=== PATIENT | female | born 1990 | race Caucasian/White ===

== ENCOUNTER 2017-02-14 15:07 | Emergency (ER) | payer BC ==
[~2017-02-14] VITALS: Ht 149.9 cm; Wt 54.0 kg
[~2017-02-14 15:07] MED LIST: ALPR0.5T PO; FLUO10CA13 PO; OMEP20CA9 PO; [UNRECOGNIZED DRUG - OTHER] PO
[2017-02-14 15:32] VITALS: BP 126/80
[2017-02-14] MEDS ORDERED: AZIT250T6 PO (16:08)
--- NOTE | 2017-02-14 16:39 | ED.ADGEN ---
Past History Past Medical History: GERD Past Surgical History: No Surgical History Alcohol Use: None Drug Use: None Adult General HPI HPI Patient is a 26-year-old female presents emergency Department with a greater than one week history of sinus congestion. She reports over last 24-48 hours she has noticed a marked increase in drainage as well as a consistency and color that drainage. She also reports intermittent fevers and now she has sinus pressure bilaterally above her jaw. She has been using Flonase and sinus rinses intermittently. Review of Systems Review of Systems Constitutional: Denies fever or chills [] Eyes: Denies change in visual acuity, redness, or eye pain [] HENT: Denies nasal congestion or sore throat [] Respiratory: Denies cough or shortness of breath [] Cardiovascular: No additional information not addressed in HPI [] GI: Denies abdominal pain, nausea, vomiting, bloody stools or diarrhea [] : Denies dysuria or hematuria [] Musculoskeletal: Denies back pain or joint pain [] Integument: Denies rash or skin lesions [] Neurologic: Denies headache, focal weakness or sensory changes [] Endocrine: Denies polyuria or polydipsia [] Allergies Allergies Allergies Coded Allergies Type Severity Reaction Last Updated Verified No Known Drug Allergies 07/09/14 No Physical Exam Physical Exam Constitutional: Well developed, well nourished, no acute distress, non-toxic appearance. [] HENT: Normocephalic, atraumatic, bilateral external ears normal, oropharynx moist, no oral exudates, nose normal. [] Eyes: PERRLA, EOMI, conjunctiva normal, no discharge. [] Neck: Normal range of motion, no tenderness, supple, no stridor. [] Cardiovascular:Heart rate regular rhythm, no murmur [] Lungs & Thorax: Bilateral breath sounds clear to auscultation [] Abdomen: Bowel sounds normal, soft, no tenderness, no masses, no pulsatile masses. [] Skin: Warm, dry, no erythema, no rash. [] Back: No tenderness, no CVA tenderness. [] Extremities: No tenderness, no cyanosis, no clubbing, ROM intact, no edema. [] Neurologic: Alert and oriented X 3, normal motor function, normal sensory function, no focal deficits noted. [] Psychologic: Affect normal, judgement normal, mood normal. [] Current Patient Data Vital Signs Vital Signs Date Time Temp Pulse Resp B/P Pulse Ox O2 Delivery O2 Flow Rate FiO2 02/14/17 15:32 97.9 83 16 99 Room Air EKG EKG [] Radiology/Procedures Radiology/Procedures [] Course & Med Decision Making Course & Med Decision Making Pertinent Labs and Imaging studies reviewed. (See chart for details) I instructed the patient to use her supportive care measures and Flonase more frequently. Given the length of time I have also gone ahead and added a course of antibiotics for her. She is to follow-up with her doctor as needed next week and return emergency department sooner she develops new or worsening symptoms. [ ] Final Impression Final Impression Sinusitis [] Problems: Dragon Disclaimer Dragon Disclaimer This electronic medical record was generated, in whole or in part, using a voice recognition dictation system. DELTA ANDERSON MD Feb 14, 2017 16:39
== END 2017-02-14 16:27 | disposition home or self-care (01) ==
LOC: ER 15:07
DX: J32.9 Chronic sinusitis, unspecified (principal); K21.9 Gastro-esophageal reflux disease without esophagitis
CPT/HCPCS: 99283

== ENCOUNTER → 2017-04-09 | Outpatient (CLI) | payer BC ==
[~2017-04-09] MED LIST changes: +AZIT250T6 PO
--- NOTE | 2017-04-09 09:20 | RAD ---
Indication:Elevated bilirubin. Low back pain. Grayscale images of the abdomen were obtained. Comparison none. Liver:No focal mass lesion is seen in the visualized liver Gallbladder:Normal. The common bile duct diameter of approximately 2 mm is normal. No intrahepatic bile duct dilatation is suggested on this study. Spleen:Normal Pancreas:Normal Kidneys:There is a right renal cyst measuring approximately 1 cm in greatest dimension. No additional renal finding is seen Abdominal aorta and IVC:Normal Ancillary findings:None Impression:No acute or significant finding. Small right renal cyst.
== END | disposition home or self-care (01) ==
LOC: US 08:15
PROVIDERS: ATTEND Family Medicine
DX: E80.6 Other disorders of bilirubin metabolism (principal); N28.1 Cyst of kidney, acquired; M54.5 Low back pain; R17 Unspecified jaundice
CPT/HCPCS: 76700

== ENCOUNTER 2017-06-02 11:30 | Emergency (ER) | payer BC ==
--- NOTE | 2017-06-02 13:07 | RAD ---
Right wrist radiograph 3 views 06/02/2017 Clinical indication: Right wrist pain. Comparison: 03/06/2006 Findings: No acute fracture or dislocation. Normal bony alignment. Soft tissues are grossly unremarkable. Impression: No acute osseous abnormality.
--- NOTE | 2017-06-02 13:13 | RAD ---
Right index finger, 3 views, 06/02/2017: History: Injury No fracture or dislocation is identified. The soft tissues are unremarkable. IMPRESSION: No significant abnormality is detected.
--- NOTE | 2017-06-02 13:32 | PHYS DOC ---
General Chief Complaint: WRIST PAIN Stated Complaint: WRIST PAIN Time Seen by MD: 11:34 Source: patient Exam Limitations: no limitations Problems: History of Present Illness Initial Comments Patient is a 26-year-old female who comes to the ED complaining of right wrist pain. Patient states that earlier today she was helping someone move and while moving a sofa her right index finger and right wrist were hyperextended. She had pain at that time and has worsening of her symptoms with active flexion of her fingers and wrist. No numbness tingling weakness or radiating symptoms no pre- arrival treatment she denies any prior injury to that extremity. Onset: this morning Severity: mild Pain/Injury Location: right wrist, right 2nd finger Method of Injury: other Modifying Factors: worse with jarring, worse with movement, improves with rest Allergies: Coded Allergies: No Known Drug Allergies (Unverified , 07/09/14) Past Medical History Medical History: no pertinent history Surgical History: no surgical history Social History Smoker: non-smoker Alcohol: none Drugs: none Review of Systems Constitutional: denies chills, denies fever Respiratory: denies cough, denies shortness of breath Cardiovascular: denies chest pain, denies palpitations Gastrointestinal: denies nausea, denies vomiting Musculoskeletal: see HPI Psychiatric/Neurological: see HPI Physical Exam General Appearance: WD/WN, no apparent distress HEENT: normal ENT inspection Neck: non-tender, supple Cardiovascular/Respiratory: normal peripheral pulses, no respiratory distress Wrist: limited ROM (diffuse right wrist tenderness no focal bony tenderness or palpable deformity. Ligaments and tendons appear to be intact.) Hand: limited ROM (right second finger diffusely tender range of motion limited due to patient discomfort. Ligaments and tendons are intact the extremity is neurovascularly intact.) Neurologic/Tendon: normal sensation, normal motor functions, normal tendon functions, responds to pain, no evidence tendon injury Psychiatric: alert, oriented x 3 Skin: normal color, warm/dry Orders, Labs, Meds Right wrist, right fingers: No acute osseous abnormality. Interpreted by Dr. Constantino. Right upper extremity neurovascularly intact after splint placement. Departure Time of Disposition: 13:31 Disposition: 01 HOME, SELF-CARE Diagnosis: right wrist sprain Condition: GOOD Patient Instructions: RICE - Routine Care for Injuries, [id number] Additional Instructions: RICE, see handout. Wear the wrist splint as needed for symptom control. [id number] Tylenol and ibuprofen as needed. Follow-up with your doctor on Thursday for a recheck. Return to the ED with new or changing symptoms. ERENDIRA CONSTANTINO DO Jun 02, 2017 13:32
[2017-06-02 13:40] VITALS: BP 111/73
== END 2017-06-02 13:40 | disposition home or self-care (01) ==
LOC: ER 11:30
DX: S63.501A Unspecified sprain of right wrist, initial encounter (principal); X58.XXXA Exposure to other specified factors, initial encounter; Y93.89 Activity, other specified; Y99.8 Other external cause status; Y92.89 Other specified places as the place of occurrence of the external cause
CPT/HCPCS: 29125; 73110; 73140; 99284-25

== ENCOUNTER 2017-10-17 20:50 | Emergency (ER) | payer BC ==
[~2017-10-17] VITALS: Ht 149.9 cm; Wt 54.0 kg
[2017-10-17 20:59] VITALS: BP 135/79
== END 2017-10-17 21:15 | disposition home or self-care (01) ==
LOC: ER 20:50
DX: R10.9 Unspecified abdominal pain (principal); Z53.21 Procedure and treatment not carried out due to patient leaving prior to being seen by health care provider

== ENCOUNTER → 2017-10-30 | Outpatient (CLI) | payer BC ==
[2017-10-17 20:59] VITALS: BP 135/79
--- NOTE | 2017-10-30 16:43 | RAD ---
CT of the abdomen and pelvis without contrast, 10/30/2017: History: Cystitis with hematuria Multidetector CT imaging was performed without oral or IV contrast as requested. This limits evaluation of the abdominal structures. The unopacified liver is unremarkable. No gallbladder abnormality is seen. The pancreas is unremarkable. The spleen is of normal size. The unopacified kidneys show no abnormality. The abdominal aorta is of normal caliber. No abdominal or pelvic adenopathy is identified. The uterus and ovaries are within normal limits in size. The partially filled urinary bladder is unremarkable. The bowel loops are not dilated. The appendix is not clearly visualized. No dilated appendix or pericecal inflammatory process is seen. There appears to be a small diverticulum arising from the lateral aspect of the hepatic flexure of the colon. No free air or free fluid is evident in the abdomen or pelvis. IMPRESSION: No acute abdominal or pelvic abnormality is detected. PQRS Compliance Statement: One or more of the following individualized dose reduction techniques were utilized for this examination: 1. Automated exposure control 2. Adjustment of the mA and/or kV according to patient size 3. Use of iterative reconstruction technique
== END | disposition home or self-care (01) ==
LOC: CT 16:01
PROVIDERS: ATTEND Family Medicine
DX: N30.01 Acute cystitis with hematuria (principal); F17.210 Nicotine dependence, cigarettes, uncomplicated
CPT/HCPCS: 74176

== ENCOUNTER 2017-12-04 16:30 | Emergency (ER) | payer BC ==
[~2017-12-04] VITALS: Ht 149.9 cm; Wt 58.1 kg
[2017-12-04] MEDS ORDERED: diazePAM 5 MG TABLET PO ONE (17:15)
[2017-12-04] MEDS ORDERED: HYDROcodone/APAP 5/325MG 1 TAB TABLET PO ONE (17:15)
--- NOTE | 2017-12-04 17:16 | ED.ADGEN ---
Past History Past Medical History: No Pertinent History Past Surgical History: , Other Alcohol Use: None Drug Use: None Adult General Chief Complaint Chief Complaint back spasm HPI HPI Patient is a 27 year old female who presents with right low back spasm. She was at work and she does not recall a specific movement that she made but all of a sudden she got right back spasm that was crippling and was unable to walk. No prior similar symptoms, no saddle sensory change or bowel incontinence or retention, no midline tenderness, no fevers, no dysuria or increased urinary frequency. It does worsen with movement. Review of Systems Review of Systems Constitutional: Denies fever or chills [] Eyes: Denies change in visual acuity, redness, or eye pain [] HENT: Denies nasal congestion or sore throat [] Respiratory: Denies cough or shortness of breath [] Cardiovascular: Denies chest pain GI: Denies abdominal pain, nausea, vomiting, bloody stools or diarrhea [] : Denies dysuria or hematuria [] Musculoskeletal: Her history of present illness Integument: Denies rash or skin lesions [] Neurologic: Denies headache, focal weakness or sensory changes [] Endocrine: Denies polyuria or polydipsia [] All other systems were reviewed and found to be within normal limits, except as documented in this note. Current Medications Current Medications Current Medications Medications (Trade) Dose Ordered Sig/Luis Fernando Start Time Stop Time Status Last Admin Dose Admin Acetaminophen/ Hydrocodone Bitart (Lortab 5/325) 1 tab 1X ONCE 12/04/17 17:15 12/04/17 17:16 DC 12/04/17 17:22 1 TAB Diazepam (Valium) 5 mg 1X ONCE 12/04/17 17:15 12/04/17 17:16 DC 12/04/17 17:21 5 MG Lidocaine (Lidoderm) 1 patch 1X ONCE 12/04/17 17:30 12/04/17 17:31 DC 12/04/17 17:36 1 PATCH Allergies Allergies Allergies Coded Allergies Type Severity Reaction Last Updated Verified No Known Drug Allergies 12/04/17 No Physical Exam Physical Exam Constitutional: Well developed, well nourished, no acute distress, non-toxic appearance. Laying very still in the bed not when he to move HENT: Normocephalic, atraumatic, bilateral external ears normal, oropharynx moist, no oral exudates, nose normal. [] Eyes: PERRLA, EOMI, conjunctiva normal, no discharge. [] Neck: Normal range of motion, no tenderness, supple, no stridor. [] Cardiovascular:Heart rate regular w/regular rhythm, no murmur [] Lungs & Thorax: Bilateral breath sounds clear to auscultation [] Abdomen: Bowel sounds normal, soft, no tenderness, no masses, no pulsatile masses. [] Skin: Warm, dry, no erythema, no rash. [] Back: No midline step-off sore tenderness, point tenderness over the right lower back muscles, negative straight leg test Extremities: No tenderness, no cyanosis, no clubbing, ROM intact, no edema. [] Neurologic: Alert and oriented X 3, normal motor function, normal sensory function, no focal deficits noted. [] Psychologic: Affect normal, judgement normal, mood normal. [] Current Patient Data Vital Signs Vital Signs Date Time Temp Pulse Resp B/P (MAP) Pulse Ox O2 Delivery O2 Flow Rate FiO2 12/04/17 17:22 18 98 Room Air 12/04/17 16:38 98.1 68 EKG EKG [] Radiology/Procedures Radiology/Procedures [] Course & Med Decision Making Course & Med Decision Making Pertinent Labs and Imaging studies reviewed. (See chart for details) Patient is not driving, she was given Lidoderm patch, by mouth Iron Belt tablets along with 5 mg valium. This significantly improved her pain and she was able to move. She states she cannot take ibuprofen due to problems with GERD. We will discharge with tremor all and Lidoderm patches, Flexeril as needed. Final Impression Final Impression Back spasm[] Problems: Dragon Disclaimer Dragon Disclaimer This electronic medical record was generated, in whole or in part, using a voice recognition dictation system. APRIL DAMICO MD Dec 04, 2017 17:16
[2017-12-04] MEDS ORDERED: LIDOCAINE (700MG/PATCH) PATCH. TP ONE (17:30)
[2017-12-04 17:49] VITALS: BP 125/78
[2017-12-04] MEDS ORDERED: CYCL5TAB PO (17:53)
[2017-12-04] MEDS ORDERED: TRAM50TA PO (17:53)
[2017-12-04] MEDS ORDERED: lidocaine 5% patch TOP (17:53)
== END 2017-12-04 17:57 | disposition home or self-care (01) ==
LOC: ER 16:30
DX: M62.830 Muscle spasm of back (principal); M54.5 Low back pain
CPT/HCPCS: 99284

== ENCOUNTER 2018-05-09 13:42 | Emergency (ER) | payer BC ==
[~2018-05-09] VITALS: Ht 149.9 cm; Wt 67.1 kg
[~2018-05-09 13:42] MED LIST changes: +CYCL5TAB PO; +TRAM50TA PO; +lidocaine 5% patch TOP
[2018-05-09 13:51] VITALS: BP 120/60
[2018-05-09] MEDS ORDERED: CEPH-264 PO (14:03)
--- NOTE | 2018-05-09 16:02 | ED.ADGEN ---
Past History Past Medical History: No Pertinent History Past Surgical History: , Other Alcohol Use: None Drug Use: None Adult General HPI HPI Patient is a 27 year old female who presents with insect bite to the leg. 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 She noticed a sudden stinging sensation on the left leg. She did not see an insect or spider but she subsequently developed an area of erythema and discomfort and a little bit of swelling. Her symptoms persisted over the last 5 days. She states the symptoms however have not been worsening they have just been consistent. The area of concern has been draining some clear fluid but no purulent fluid. The patient denies a fever. She has otherwise been at baseline health. Review of Systems Review of Systems Constitutional: Denies fever or chills Respiratory: Denies cough or shortness of breath Cardiovascular: No additional information not addressed in HPI GI: Denies abdominal pain Musculoskeletal: Denies back pain or joint pain Integument: Denies rash or skin lesions All other systems were reviewed and found to be within normal limits, except as documented in this note. Allergies Allergies Allergies Coded Allergies Type Severity Reaction Last Updated Verified sulfamethoxazole Allergy Intermediate 05/09/18 Yes trimethoprim Allergy Intermediate 05/09/18 Yes Physical Exam Physical Exam Constitutional: Well developed, well nourished, no acute distress, non-toxic appearance HENT: Normocephalic, atraumatic, bilateral external ears normal, oropharynx moist Neck: Normal range of motion, no tenderness Skin: Warm, dry, no erythema, no rash Extremities: There is an area of erythema measuring less than 1 cm over the posterior aspect of the left mid leg. There is a small central pustule. There is no drainage currently. There is no local fever. There is a area of nodular tissue immediately beneath the lesion Neurologic: Alert and oriented X 3 Psychologic: Affect normal Current Patient Data Vital Signs Vital Signs Date Time Temp Pulse Resp B/P (MAP) Pulse Ox O2 Delivery O2 Flow Rate FiO2 05/09/18 13:51 98.1 82 16 96 Room Air EKG EKG [] Radiology/Procedures Radiology/Procedures [] Course & Med Decision Making Course & Med Decision Making Pertinent Labs and Imaging studies reviewed. (See chart for details) Patient is seen and examined in the emergency department. She has what appears to be a likely arthropod bite on her leg. There is a very tiny area of erythema but the patient states this has not been spreading or worsening over the last several days. She has no systemic symptoms concerning for infection. Plan today will be for discharge home. Her tetanus shot is up-to-date. The wound currently does not appear to be infected and given her history that the redness has not been worsening, it does not seem likely that they will proceed to cellulitis. The patient is given a prescription for Keflex to have at home. She is advised to fill the medicine if the erythema expands or if there is any purulent drainage from the wound. Otherwise she does not need to fill the prescription. Patient seems to understand this plan of care and is agreeable. She is discharged to home. She can follow-up with her primary care doctor or return to the ER for any new or worsening symptoms. Final Impression Final Impression Arthropod Bite Dominga Disclaimer Dominga Disclaimer This electronic medical record was generated, in whole or in part, using a voice recognition dictation system. MAXI SALCIDO DO May 09, 2018 16:02
== END 2018-05-09 14:10 | disposition home or self-care (01) ==
LOC: ER 13:42
DX: S80.862A Insect bite (nonvenomous), left lower leg, initial encounter (principal); Z88.1 Allergy status to other antibiotic agents; W57.XXXA Bitten or stung by nonvenomous insect and other nonvenomous arthropods, initial encounter; Y93.89 Activity, other specified; Y99.8 Other external cause status; Y92.89 Other specified places as the place of occurrence of the external cause
CPT/HCPCS: 99283

== ENCOUNTER 2018-08-17 22:00 | Emergency (ER) | payer BC ==
[~2018-08-17] VITALS: Ht 149.9 cm; Wt 67.1 kg
[~2018-08-17 22:00] MED LIST changes: +CEPH-264 PO
--- NOTE | 2018-08-17 23:32 | EKG ---
[address] [address] Test Date: 2018-08-17 Test Time: 23:29:27 Pat Name: ROSSI BERNSTEIN Department: Room: Gender: F [employer]: : 1990 Requested By: ALEJANDRINA STEWART Order Number: [id number] Reading MD: Judd Mcgregor MD Measurements Intervals [place] Rate: 81 P: 34 AL: 156 QRS: 24 QRSD: 82 T: 16 QT: 382 QTc: 449 Interpretive Statements SINUS RHYTHM Electronically Signed On 08-19-2018 10:41:39 CDT by Judd Mcgregor MD
[2018-08-17 23:44] LABS: BACTERIA,URINE 0 /HPF (0-FEW); BARBITURATES NEG (NEG); BENZODIAZEPINES NEG (NEG); BILIRUBIN,URINE NEG (NEG); CANNABINOIDS NEG (NEG); CLARITY,URINE CLEAR; COCAINE NEG (NEG); COLOR,URINE YELLOW; GLUCOSE,URINE NEG (NEG); METHADONE NEG (NEG); NITRITE,URINE NEG (NEG); OPIATES NEG (NEG); PHENCYCLIDINE NEG (NEG); RBC,URINE 0 /HPF (0-2); SQUAMOUS EPITHELIAL CELL,UR MANY /LPF; UROBILINOGEN,URINE 0.2 mg/dL (0.2 mg/dL); WBC,URINE OCC /HPF (0-4)
[2018-08-17] MEDS ORDERED: IV NORMAL SALINE 1,000ML 1,000 ML IV ONE ×2 (23:45)
[2018-08-17 23:46] LABS: AMPHETAMINE/METHAMPHETAMINE NEG (NEG)
[2018-08-18 00:26] LABS: BASO # 0.1 x10^3/uL (0.0-0.2); BASO % 1 % (0-3); EOS # 0.3 x10^3/uL (0.0-0.7); EOS % 3 % (0-3); HEMOGLOBIN 14.9 g/dL (12.0-15.5); LYMPH # 3.2 x10^3/uL (1.0-4.8); LYMPH % 29 % (24-48); MEAN CORPUSCULAR HEMOGLOBIN 29 pg (25-35); MEAN CORPUSCULAR HGB CONC 34 g/dL (31-37); MEAN CORPUSCULAR VOLUME 84 fL (79-100); MONO # 1.1 x10^3/uL (0.0-1.1); MONO % 10 % (0-9); NEUT # 6.4 x10^3uL (1.8-7.7); NEUT % 58 % (31-73); PLATELET COUNT 307 x10^3/uL (140-400); RED BLOOD COUNT 5.24 x10^6/uL (3.50-5.40); RED CELL DISTRIBUTION WIDTH 14.1 % (11.5-14.5)
[2018-08-18 00:27] VITALS: BP 117/70
--- NOTE | 2018-08-18 00:34 | PHYS DOC ---
Past History Past Medical History: No Pertinent History, Depression, GERD, Other (PTSD) Past Surgical History: , Other (LEEP) Smoking: Non-smoker Alcohol Use: None Drug Use: None Adult General Chief Complaint Chief Complaint: DIZZY/LIGHT HEADED HPI HPI Patient is a 28-year-old woman presenting to the ED complaining of dizziness. She is accompanied by her . She states that she would like to be monitored for seizures, possibly as a side effect of prazosin. She was prescribed prazosin by her PCP to treat nightmares. She took prazosin for 7 days. However, she experienced dizziness and orthostatic hypotension which led to the discontinuation of the drug 3 days ago. She reports that her symptoms arise with changes in position. Reports "room spinning sensation". Her notes that she has also been walking funny, requiring him to be nearby for support in case she falls. Review of Systems Review of Systems Constitutional: Denies fever or chills [] Eyes: Denies change in visual acuity or redness HENT: Reports headache Respiratory: Denies cough or shortness of breath [] Cardiovascular: Denies chest pain GI: Denies abdominal pain, nausea, vomiting : Denies dysuria or hematuria [] Musculoskeletal: Denies back pain or joint pain [] Integument: Denies rash or skin lesions [] Neurologic: Denies headache, focal weakness or sensory changes; reports dizziness Complete systems were reviewed and found to be within normal limits, except as documented in this note. Current Medications Current Medications Current Medications Medications (Trade) Dose Ordered Sig/Luis Fernando Start Time Stop Time Status Last Admin Dose Admin Dexamethasone Sodium Phosphate (Decadron) 10 mg 1X ONCE 08/18/18 00:30 08/18/18 00:31 UNV Sodium Chloride 1,000 ml @ 1,000 mls/hr 1X ONCE 08/17/18 23:45 08/18/18 00:44 Allergies Allergies Allergies Coded Allergies Type Severity Reaction Last Updated Verified sulfamethoxazole Allergy Intermediate 05/09/18 Yes trimethoprim Allergy Intermediate 05/09/18 Yes Physical Exam Physical Exam Constitutional: Well developed, well nourished, no acute distress, non-toxic appearance. [] HENT: Normocephalic, atraumatic, bilateral external ears normal Eyes: PERRL, EOMI, no nystagmus Neck: Normal range of motion, no tenderness, supple] Cardiovascular:Heart rate regular rhythm, no murmur [] Lungs & Thorax: Bilateral breath sounds clear to auscultation [] Abdomen: Soft, no tenderness Skin: Warm, dry, no erythema, no rash. [] Back: No tenderness, no CVA tenderness. [] Extremities: No tenderness, ROM intact, no edema. [] Neurologic: Alert and oriented X 3, normal motor function, normal sensory function, no focal deficits noted. [] Psychologic: Affect normal, judgement normal, mood normal. [] Current Patient Data Lab Results Laboratory Tests Test 08/17/18 22:45 Urine Collection Type Unknown Urine Color Yellow Urine Clarity Clear Urine pH 5.5 Urine Specific Higden >=1.030 Urine Protein Neg (NEG-TRACE) Urine Glucose (UA) Neg mg/dL (NEG) Urine Ketones (Stick) Neg mg/dL (NEG) Urine Blood Neg (NEG) Urine Nitrite Neg (NEG) Urine Bilirubin Neg (NEG) Urine Urobilinogen Dipstick 0.2 mg/dL (0.2 mg/dL) Urine Leukocyte Esterase Neg (NEG) Urine RBC 0 /HPF (0-2) Urine WBC Occ /HPF (0-4) Urine Squamous Epithelial Cells Many /LPF Urine Bacteria 0 /HPF (0-FEW) Urine Opiates Screen Neg (NEG) Urine Methadone Screen Neg (NEG) Urine Barbiturates Neg (NEG) Urine Phencyclidine Screen Neg (NEG) Urine Amphetamine/Methamphetamine Neg (NEG) Urine Benzodiazepines Screen Neg (NEG) Urine Cocaine Screen Neg (NEG) Urine Cannabinoids Screen Neg (NEG) Urine Ethyl Alcohol Neg (NEG) EKG EKG @2329 NSR at 81bpm, NO ST elevation Radiology/Procedures Radiology/Procedures [] Course & Med Decision Making Course & Med Decision Making 28-year-old female patient presenting to the ED with dizziness. Orthostatic BP measurements unremarkable. She was given 1 L saline, as well as a single dose of dexamethasone and Antivert. EKG stable. Labs obtained and posted to chart. Patient stable for discharge with outpatient follow-up with PCP/neurologist. Discussed findings and plan with patient and family, who acknowledge understanding and agreement. Dragon Disclaimer Dragon Disclaimer This electronic medical record was generated, in whole or in part, using a voice recognition dictation system. Departure Departure: Impression: Primary Impression: Dizziness Disposition: 01 HOME, SELF-CARE Condition: STABLE Referrals: ANA SCHAEFER DO (PCP) Patient Instructions: Dizziness, [id number], Vertigo, [id number] Scripts Meclizine Hcl (MECLIZINE HCL) 25 Mg Tablet 1 TAB PO PRN TID PRN for DIZZINESS, #20 TAB Prov: ALEJANDRINA STEWART DO 08/18/18 ALEJANDRINA STEWART DO Aug 18, 2018 00:34
[2018-08-18] MEDS ORDERED: MECL25TA3 PO (00:45)
[2018-08-18 00:46] LABS: ALBUMIN 3.8 g/dL (3.4-5.0); ALBUMIN/GLOBULIN RATIO 1.1 (1.0-1.7); CALCIUM 9.4 mg/dL (8.5-10.1); CREATININE 0.8 mg/dL (0.6-1.0); GFR 84.2; TOTAL BILIRUBIN 0.5 mg/dL (0.2-1.0); TOTAL PROTEIN 7.2 g/dL (6.4-8.2)
[2018-08-18] MEDS ORDERED: MECLIZINE 12.5 MG TABLET. PO ONE (01:00)
[2018-08-18] MEDS ORDERED: DEXAMETHASONE SOD PHOS 10 MG/ML VIAL IV ONE (01:00)
== END 2018-08-18 01:00 | disposition home or self-care (01) ==
LOC: ER 22:00
DX: R42 Dizziness and giddiness (principal); I95.1 Orthostatic hypotension; K21.9 Gastro-esophageal reflux disease without esophagitis; F43.10 Post-traumatic stress disorder, unspecified; Z88.1 Allergy status to other antibiotic agents; Z88.2 Allergy status to sulfonamides
CPT/HCPCS: 36415; 80053; 80307; 81001; 82553; 83735; 84484; 85025; 93005; 96361; 96374; 99285; G0480; J1100; J8597; G0479; J7030

== ENCOUNTER 2019-01-04 08:55 | Emergency (ER) | payer BC ==
[~2019-01-04 08:55] MED LIST changes: +MECL25TA3 PO
[2019-01-04] MEDS ORDERED: IV NORMAL SALINE 1,000ML 1,000 ML IV ONE (09:15)
--- NOTE | 2019-01-04 09:23 | PHYS DOC ---
Past History Past Medical History: No Pertinent History, Depression, GERD, Other Past Surgical History: , Other Smoking: Non-smoker Alcohol Use: None Drug Use: None Adult General Chief Complaint Chief Complaint: COUGH HPI HPI 28-year-old female presents via EMS with cough, shortness breath, vomiting. The patient is been having a dry cough for about 5 days. She was diagnosed by her PCP with viral illness. Today, the patient had a coughing fit followed by chest tightness and rib pain. The patient's children were concerned they called 911. Patient has been using [employer] which is worked most the time. She is now concerned about pneumonia. She's not had a measured fever at home, but admits chills. She has not had x-rays for this illness. Review of Systems Review of Systems Constitutional: chills [] Eyes: Denies change in visual acuity, redness, or eye pain [] HENT: Denies nasal congestion or sore throat [] Respiratory: Cough with shortness of breath [] Cardiovascular: No additional information not addressed in HPI [] GI: nausea, vomiting. No bloody stools or diarrhea [] : Denies dysuria or hematuria [] Musculoskeletal: Denies back pain or joint pain [] Integument: Denies rash or skin lesions [] Neurologic: Denies headache, focal weakness or sensory changes [] Endocrine: Denies polyuria or polydipsia [] All other systems were reviewed and found to be within normal limits, except as documented in this note. Current Medications Current Medications Current Medications Medications (Trade) Dose Ordered Sig/Luis Fernando Start Time Stop Time Status Last Admin Dose Admin Ketorolac Tromethamine (Toradol 30mg Vial) 30 mg 1X ONCE 01/04/19 09:15 01/04/19 09:16 UNV Ondansetron HCl (Zofran) 4 mg 1X ONCE 01/04/19 09:30 01/04/19 09:31 Sodium Chloride 1,000 ml @ 1,000 mls/hr 1X ONCE 01/04/19 09:15 01/04/19 10:14 Allergies Allergies Allergies Coded Allergies Type Severity Reaction Last Updated Verified sulfamethoxazole Allergy Intermediate 01/04/19 Yes trimethoprim Allergy Intermediate 01/04/19 Yes Physical Exam Physical Exam Constitutional: Well developed, well nourished, no acute distress, non-toxic appearance. [] HENT: Normocephalic, atraumatic, bilateral external ears normal, oropharynx moist, no oral exudates, nose normal. [] Eyes: PERRLA, EOMI, conjunctiva normal, no discharge. [] Neck: Normal range of motion, no tenderness, supple, no stridor. [] Cardiovascular:Heart rate regular rhythm, no murmur [] Lungs & Thorax: Bilateral breath sounds clear to auscultation [] Abdomen: Bowel sounds normal, soft, no tenderness, no masses, no pulsatile masses. [] Skin: Warm, dry, no erythema, no rash. [] Back: No tenderness, no CVA tenderness. [] Extremities: No tenderness, no cyanosis, no clubbing, ROM intact, no edema. [] Neurologic: Alert and oriented X 3, normal motor function, normal sensory function, no focal deficits noted. [] Psychologic: Affect normal, judgement normal, mood anxious. [] EKG EKG [] Radiology/Procedures Radiology/Procedures [] Impressions: EXAM: PA and Lateral Views of the Chest DATE: 01/04/2019 9:20 AM INDICATION: COUGH,SOA,POSSIBLE FLU COMPARISON: 06/19/2016 FINDINGS: The heart is not enlarged. Mediastinal and hilar contours are normal. No focal parenchymal airspace opacity. No pleural effusion or pneumothorax. IMPRESSION: 1. No radiographic evidence for acute cardiopulmonary process. Electronically signed by: Keith Hallman MD (01/04/2019 9:28 AM) [facility] DICTATED AND SIGNED BY: KEITH HALLMAN MD DATE: 01/04/19 0928 CC: AKBAR OCAMPO DO; ANA SCHAEFER DO Course & Med Decision Making Course & Med Decision Making Pertinent Labs and Imaging studies reviewed. (See chart for details) The patient's chest x-ray was negative for pneumonia. Her labs significant for an elevated white count. The patient has not been on any steroids lately. I will give the patient's x-ray I'm still concerned for atypical pneumonia. I will treat her as such with azithromycin. We will give the first dose in the ED. [] Dragon Disclaimer Dragon Disclaimer This electronic medical record was generated, in whole or in part, using a voice recognition dictation system. Departure Departure: Impression: Primary Impression: Atypical pneumonia Disposition: 01 HOME, SELF-CARE Condition: STABLE Referrals: ANA SCHAEFER DO (PCP) Patient Instructions: Pneumonia, Adult, [id number] Scripts Azithromycin (AZITHROMYCIN TABLET) 250 Mg Tablet 250 MG PO DAILY for ANTI-BIOTIC for 4 Days, #4 TAB 0 Refills Prov: AKBAR OCAMPO DO 01/04/19 AKBAR OCAMPO DO Jan 04, 2019 09:23
[2019-01-04] MEDS ORDERED: ONDANSETRON PF 4 MG/2 ML VIAL. IV ONE (09:30)
--- NOTE | 2019-01-04 09:31 | RAD ---
EXAM: PA and Lateral Views of the Chest DATE: 01/04/2019 9:20 AM INDICATION: COUGH,SOA,POSSIBLE FLU COMPARISON: 06/19/2016 FINDINGS: The heart is not enlarged. Mediastinal and hilar contours are normal. No focal parenchymal airspace opacity. No pleural effusion or pneumothorax. IMPRESSION: 1. No radiographic evidence for acute cardiopulmonary process. Electronically signed by: Keith Hallman MD (01/04/2019 9:28 AM) [facility]
[2019-01-04 09:35] LABS: BASO # 0.1 x10^3/uL (0.0-0.2); BASO % 0 % (0-3); EOS # 0.1 x10^3/uL (0.0-0.7); EOS % 1 % (0-3); HEMATOCRIT 45.4 % (36.0-47.0); HEMOGLOBIN 15.1 g/dL (12.0-15.5); LYMPH # 2.3 x10^3/uL (1.0-4.8); LYMPH % 11 % (24-48); MEAN CORPUSCULAR HEMOGLOBIN 27 pg (25-35); MEAN CORPUSCULAR HGB CONC 33 g/dL (31-37); MEAN CORPUSCULAR VOLUME 82 fL (79-100); MONO # 1.3 x10^3/uL (0.0-1.1); MONO % 6 % (0-9); NEUT # 17.8 x10^3uL (1.8-7.7); NEUT % 82 % (31-73); PLATELET COUNT 287 x10^3/uL (140-400); RED BLOOD COUNT 5.52 x10^6/uL (3.50-5.40); RED CELL DISTRIBUTION WIDTH 14.1 % (11.5-14.5); WHITE BLOOD COUNT 21.6 x10^3/uL (4.0-11.0)
[2019-01-04 09:43] LABS: ALBUMIN 3.5 g/dL (3.4-5.0); ALBUMIN/GLOBULIN RATIO 0.9 (1.0-1.7); CREATININE 0.7 mg/dL (0.6-1.0); GFR 98.3; POTASSIUM 3.6 mmol/L (3.5-5.1); TOTAL BILIRUBIN 0.4 mg/dL (0.2-1.0); TOTAL PROTEIN 7.2 g/dL (6.4-8.2)
[2019-01-04] MEDS ORDERED: KETOROLAC 30 MG/ML VIAL. IV ONE (09:45)
[2019-01-04 09:48] LABS: INFLUENZA A PATIENT NEGATIVE (NEGATIVE); INFLUENZA B PATIENT NEGATIVE (NEGATIVE)
[2019-01-04 11:17] LABS: % BANDS 2 % (0-9); % EOS 1 % (0-5); % LYMPHS 13 % (24-48); % MONOS 9 % (0-10); % SEGS 75 % (35-66); PLT ESTIMATE ADEQUATE (ADEQUATE)
[2019-01-04] MEDS ORDERED: AZIT250T6 PO (11:39)
[2019-01-04] MEDS ORDERED: AZITHROMYCIN 250 MG TABLET. PO ONE (11:45)
[2019-01-04 11:55] VITALS: BP 120/52
== END 2019-01-04 11:55 | disposition home or self-care (01) ==
LOC: ER 08:55
DX: J18.9 Pneumonia, unspecified organism (principal); R11.2 Nausea with vomiting, unspecified; K21.9 Gastro-esophageal reflux disease without esophagitis; F32.9 Major depressive disorder, single episode, unspecified; Z88.1 Allergy status to other antibiotic agents; Z88.2 Allergy status to sulfonamides
CPT/HCPCS: 36415; 71046; 80053; 85007; 85025; 87804; 96361; 96374; 96375; 99284; J0456; J1885; J2405; J7030

== ENCOUNTER 2019-10-02 19:57 | Emergency (ER) | payer OTHER ==
[~2019-10-02] VITALS: Ht 149.9 cm; Wt 67.1 kg
[~2019-10-02 19:57] MED LIST changes: +OMEP-229 PO; -OMEP20CA9 PO
--- NOTE | 2019-10-02 20:07 | PHYS DOC ---
Past History Past Medical History: Anxiety, Depression, GERD, Other Past Surgical History: , Other Smoking: Non-smoker Alcohol Use: None Drug Use: None Adult General Chief Complaint Chief Complaint: ".. I got really bad reflux... and have allergy to milk.. I ate some cereal with milk on it... and I got really bad reflux and gastric p ain... " HPI HPI Patient is a 29 year old female who presents with above hx and complaints of epigastric and reflux abd. pain. Pt.has known history of lactose intolerance. Patient has known history of GERD. She recently had and hysterectomy . No sequela from the surgeries.. All incisions are healing well. No history of bad food, travel, specific ill contacts. Patient does admit to dietary noncompliance with intake of milk on her cereal. No history of dark or t arry stools. Currently patient is almost completely symptom free. Patient currently requesting to be treated clinically with no labs or x-rays. No hx of dyspnea. No hx dysrhythmia. No history immunosuppression. No history coagulopathy. No history of trauma. No history of cardiac disorders or coagulopathy with her or family members. Follows with CODIE Alanis. Review of Systems Review of Systems Constitutional: Denies fever or chills [] Eyes: Denies change in visual acuity, redness, or eye pain [] HENT: Denies nasal congestion or sore throat [] Respiratory: Denies cough or shortness of breath [] Cardiovascular: No additional information not addressed in HPI [] GI: Complaints of epigastric pain and reflux abdominal pain. Denies nausea, vomiting, bloody stools or diarrhea [] : Denies dysuria or hematuria [] Musculoskeletal: Denies back pain or joint pain [] Integument: Denies rash or skin lesions [] Neurologic: Denies headache, focal weakness or sensory changes [] Endocrine: Denies polyuria or polydipsia [] All other systems were reviewed and found to be within normal limits, except as documented in this note. Family History Family History Noncontributory Current Medications Current Medications See nursing for home meds Allergies Allergies Allergies Coded Allergies Type Severity Reaction Last Updated Verified sulfamethoxazole Allergy Intermediate 01/04/19 Yes trimethoprim Allergy Intermediate 01/04/19 Yes Physical Exam Physical Exam Constitutional: Well developed, well nourished, no acute distress, non-toxic appearance. [] HENT: Normocephalic, atraumatic, bilateral external ears normal, oropharynx moist, no oral exudates, nose normal. [] Eyes: PERRLA, EOMI, conjunctiva normal, no discharge. [] Neck: Normal range of motion, no tenderness, supple, no stridor. [] Cardiovascular:Heart rate regular rhythm, no murmur [] Lungs & Thorax: Bilateral breath sounds equal at apex on auscultation [] Abdomen: Bowel sounds normal, soft, no tenderness currently in epigastric or right upper quadrant, no masses, no pulsatile masses. [Midline incision is healing well. No tenderness. Skin: Warm, dry, no erythema, no rash. [] Back: No tenderness, no CVA tenderness. [] Extremities: No tenderness, no cyanosis, no clubbing, ROM intact, no edema. [] Neurologic: Alert and oriented X 3, normal motor function, normal sensory function, no focal deficits noted. [] Psychologic: Affect normal, judgement normal, mood normal. []Patient states she's embarrassed because her symptoms are gone. EKG EKG [] Radiology/Procedures Radiology/Procedures [] Course & Med Decision Making Course & Med Decision Making Pertinent Labs and Imaging studies reviewed. (See chart for details).. Per patient's request we'll treated clinically for GERD and gastritis. Wants no labs or x-rays or procedures. Recommend patient avoid milk products and go to nondairy substitutes such as rice, almond, oat, soy milk substitutes. If continued issues consider follow-up with GI and EGD. Follow-up primary care. Will start on Zantac 150 mg twice day for 30 days. Patient may take Tylenol for pain. Would avoid NSAIDs. Return if any concerns. [] 1. Abdomen pain-epigastric 2. History of prior episodes of GERD and gastritis 3. History of lactose intolerance Dragon Disclaimer Dragon Disclaimer This electronic medical record was generated, in whole or in part, using a voice recognition dictation system. Departure Departure: Disposition: HOME/RESIDENCE PRIOR TO ADM Condition: STABLE Referrals: GEORGES ALANIS PAC (PCP) Scripts Ranitidine Hcl (ZANTAC) 150 Mg Tablet 150 MG PO BID for gastric reflux, #60 TAB Prov: ROWDY JAUREGUI MD 10/02/19 Dominga Disclaimer This chart was dictated in whole or in part using Voice Recognition software in a busy, high-work load, and often noisy Emergency Department environment. It may contain unintended and wholly unrecognized errors or omissions. ROWDY JAUREGUI MD Oct 02, 2019 20:07
[2019-10-02 20:23] VITALS: BP 161/92
[2019-10-02] MEDS ORDERED: RANI-376 PO (20:25)
[2019-10-02] MEDS ORDERED: MAGNESIUM HYDROXIDE 2,400 MG/30 ML ORAL.SUSP. PO ONE (20:30)
[2019-10-02] MEDS ORDERED: FAMOTIDINE 20 MG TABLET PO ONE (20:30)
[2019-10-02 20:31] LABS: BARBITURATES NEG (NEG); BENZODIAZEPINES NEG (NEG); CANNABINOIDS NEG (NEG); COCAINE NEG (NEG); METHADONE NEG (NEG); OPIATES NEG (NEG); PHENCYCLIDINE NEG (NEG)
[2019-10-02 20:36] LABS: AMPHETAMINE/METHAMPHETAMINE NEG (NEG)
[2019-10-02 20:55] LABS: BACTERIA,URINE FEW /HPF (0-FEW); BILIRUBIN,URINE NEG (NEG); CLARITY,URINE CLEAR; COLOR,URINE YELLOW; GLUCOSE,URINE NEG (NEG); NITRITE,URINE NEG (NEG); RBC,URINE OCC /HPF (0-2); SQUAMOUS EPITHELIAL CELL,UR OCC /LPF; UROBILINOGEN,URINE 0.2 mg/dL (0.2 mg/dL); WBC,URINE OCC /HPF (0-4)
== END 2019-10-02 20:40 | disposition home or self-care (01) ==
LOC: ER 19:57
DX: R10.13 Epigastric pain (principal); K21.9 Gastro-esophageal reflux disease without esophagitis; E73.9 Lactose intolerance, unspecified; Z98.890 Other specified postprocedural states; Z88.1 Allergy status to other antibiotic agents; Z88.2 Allergy status to sulfonamides
CPT/HCPCS: 36415; 80307; 81001; 99284

== ENCOUNTER 2020-06-03 14:04 | Emergency (ER) | payer MEDICAID, OTHER ==
[~2020-06-03] VITALS: Ht 149.9 cm; Wt 76.9 kg
[~2020-06-03 14:04] MED LIST changes: +MECL-75 PO; -MECL25TA3 PO; -OMEP-229 PO; +OMEP20CA16 PO; +RANI-376 PO
[2020-06-03 14:14] VITALS: BP 126/69
[2020-06-03] MEDS ORDERED: PRED50TA PO (14:48)
--- NOTE | 2020-06-03 14:49 | PHYS DOC ---
Past History Past Medical History: Anxiety, Bipolar, Depression, GERD Past Surgical History: , Hysterectomy Smoking: Non-smoker Alcohol Use: None Drug Use: None Adult General Chief Complaint Chief Complaint: DIZZY/LIGHT HEADED HPI HPI Patient is a 29-year-old female who presents for dizziness. Onset of symptoms was 2 days ago but acutely worsened today after swimming. Nothing known makes better, no specific movements or body positions make worse. Patient describes herself being on a boat, denies any vision changes or lightheadedness. Admits recent URI-like symptoms such as left ear fullness and rhinorrhea, has been afebrile, no COVID contacts, no long distance travel. Patient concerned that she was recently weaned off of the outpatient p.o. sertraline. She has been off this for 3 days and unsure if this is because it [place] to her dizziness. Only other high risk medications patient takes his clonazepam but she has been on consistent dose in outpatient setting, no recent antibiotics or medication changes have been made Review of Systems Review of Systems Fourteen body systems of review of systems have been reviewed. See HPI for pertinent positives and negative responses, other howell all other systems are negative, non-pertinent or non-contributory Allergies Allergies Allergies Coded Allergies Type Severity Reaction Last Updated Verified sulfamethoxazole Allergy Intermediate 01/04/19 Yes trimethoprim Allergy Intermediate 01/04/19 Yes famotidine Allergy Unknown 06/03/20 Yes tramadol Allergy Unknown 06/03/20 Yes Physical Exam Physical Exam Constitutional: Well developed, well nourished, no acute distress, non-toxic appearance. HENT: Normocephalic, atraumatic, bilateral external ears normal, oropharynx moist, no oral exudates, nose normal. Eyes: PERRLA, EOMI, conjunctiva normal, no discharge. Neck: Normal range of motion, no tenderness, supple, no stridor. Cardiovascular:Heart rate regular, sinus rhythm, no murmurs rubs or gallops Lungs & Thorax: Bilateral breath sounds clear to auscultation Abdomen: Bowel sounds normal, soft, no tenderness, no masses, no pulsatile masses. Nonsurgical abdomen, no peritoneal signs Skin: Warm, dry, no erythema, no rash. Back: No tenderness, no CVA tenderness. Extremities: No tenderness, no cyanosis, no clubbing, ROM intact, no edema. Neurologic: Alert and oriented X 3, grossly normal motor & sensory function, no focal deficits noted. Negative Romberg. Unremarkable gait, able to self ambulate without any difficulties Psychologic: Affect normal, judgement normal, mood normal. Current Patient Data Vital Signs Vital Signs Date Time Temp Pulse Resp B/P (MAP) Pulse Ox O2 Delivery O2 Flow Rate FiO2 06/03/20 14:14 98.6 74 16 126/69 (88) 99 EKG EKG [] Radiology/Procedures Radiology/Procedures [] Course & Med Decision Making Course & Med Decision Making Patient seen and evaluated by myself on ED arrival, well-appearing and able to self ambulate to room without any obvious defects Vital signs stable Comprehensive history and physical exam grossly non-concerning, reported history and physical exam lend presenting symptoms to diagnoses of leg bronchitis Discussed this diagnosis with patient with good understanding, also discussed this could be an acute presentation of a more serious disease process ED course discussed with patient, given that she is well-appearing without any focal defects and asymptomatic throughout entirety of ED visit, joint decision was made for discharge home with continued supportive care Short prescription of p.o. steroids was prescribed to complement supportive care for patient's labyrinthitis Patient has close follow-up in outpatient setting with PCP, no concern for access to healthcare, discussed importance of setting up follow-up with PCP in upcoming 1 to 5 days Strict return precautions discussed with good understanding by patient, all questions and concerns addressed prior to ED departure Dragon Disclaimer Dragon Disclaimer This electronic medical record was generated, in whole or in part, using a voice recognition dictation system. Departure Departure: Impression: Primary Impression: Acute viral labyrinthitis of left ear Disposition: HOME/RESIDENCE PRIOR TO ADM Condition: STABLE Referrals: LUCIE GLORIA (PCP) Additional Instructions: As discussed prior to ED discharge, you have been diagnosed with leg bronchitis Supportive care with adjunct oral steroids as advised with close PCP follow-up Please find the information of the diagnoses below What are dizziness and vertigo? Dizziness is a feeling that is sometimes hard to describe. It often makes you feel like you are about to fall or pass out. Dizziness can also cause you to feel lightheaded or make it hard for you to walk straight. Vertigo is a type of dizziness that makes you feel like you are spinning, swaying, or tilting, or like the room is moving around you. These feelings come and go, and might last seconds, hours, or days. You might feel worse when you move your head, change positions, cough, or sneeze. Some people with vertigo have trouble walking. Some people with vertigo have nausea and might vomit. What causes vertigo? The most common causes of vertigo include: ?Inner ear problems Deep inside the ear, there is a small network of tubes that are filled with fluid. Floating inside that fluid are special calcium deposits. Together, these tubes and deposits make up the "vestibular system." This system tells the brain what position the body is in. It also helps keep you balanced (figure 1). Problems that affect the inner ear and can lead to vertigo include: Benign paroxysmal positional vertigo In this condition, extra calcium deposits form in the inner ear. This can lead to short episodes of vertigo that happen when you move your head in certain ways. Meniere disease This is a condition in which fluid builds up inside the inner ear. This causes vertigo as well as hearing loss and ringing in one or both ears. Vestibular neuritis This is sometimes caused by a virus which can affect the inner ear or the nerve in the inner ear. It is sometimes called "labyrinthitis." People with this condition have vertigo that comes on quickly and can last several days. They also often feel very sick and off balance. Head injury Even a minor head injury can cause inner ear damage and vertigo. This is usually temporary. Vestibular migraine People who get migraines, which are a type of headache, can sometimes have episodes of vertigo. This can happen with or without a headache. ?Other problems Other things that can cause vertigo include: Certain medicines Problems that affect the brain, such as stroke or multiple sclerosis Should I see a doctor or nurse? See your doctor or nurse right away if you have vertigo and: ?Have a new or severe headache ?Have a fever higher than 100.4F (38C) ?Start to see double or have trouble seeing clearly ?Have trouble speaking or hearing ?Have weakness in an arm or leg or your face droops to one side ?Cannot walk on your own ?Pass out ?Have numbness or tingling ?Have chest pain ?Cannot stop vomiting You should also see your doctor or nurse if you have vertigo that lasts for several minutes or more and you: ?Are older than 60 ?Had a stroke in the past ?Are at risk for having a stroke, for example because you have diabetes or you smoke If you have dizziness or vertigo that comes and goes but you do not have any of the problems listed above, you should still make an appointment with your doctor or nurse. Will I need tests? Maybe. Your doctor will start by learning about your symptoms and doing an exam. During the exam, he or she will check: ?Your hearing ?How you walk and keep your balance ?How your eyes work when you watch a moving object, and when your head is turned from side to side Depending on what your doctor finds during the exam, he or she might order more tests to better understand your hearing or balance problems. In some cases, the doctor will order an MRI of your brain. An MRI is an imaging test that creates pictures of the inside of your body. Scripts Prednisone (PREDNISONE) 50 Mg Tablet 50 MG PO DAILY for LABRYNTHITIS, #4 TAB Prov: ESTEFANI GIMENEZ DO 06/03/20 Justification of Admission: Justification of Admission: Justification of Admission Dx: N/A ETSEFANI GIMENEZ DO Jun 03, 2020 14:49
== END 2020-06-03 14:54 | disposition home or self-care (01) ==
LOC: ER 14:04
DX: H83.02 Labyrinthitis, left ear (principal); B97.89 Other viral agents as the cause of diseases classified elsewhere; K21.9 Gastro-esophageal reflux disease without esophagitis; Z88.1 Allergy status to other antibiotic agents; Z88.6 Allergy status to analgesic agent; Z88.8 Allergy status to other drugs, medicaments and biological substances
CPT/HCPCS: 99283

== ENCOUNTER → 2022-01-08 | Outpatient (CLI) | payer OTHER ==
[~2022-01-08] MED LIST changes: +PRED50TA PO
--- NOTE | 2022-01-08 09:33 | RAD ---
Exam Date: 01/08/2022 7:46 AM US ABDOMEN OR LOWER BACK LIMITED Indication: Reason: ELEVATED LFTS / Spl. Instructions: / History: . TECHNIQUE: Multiple longitudinal and transverse sonographic images of the right upper quadrant and g allbladder are submitted for interpretation. FINDINGS: The liver is enlarged up to 18.4 cm and diffusely increased in echogenicity and heterogeneous in echo texture. The portal vein is patent with hepatopetal flow. No focal intrahepatic abnormality is se en. There are small gallstones. There is no gallbladder wall thickening or pericholecystic fluid. There is no biliary ductal dilatation, with the common bile duct measuring 3 mm. The visualized abdominal aorta, inferior vena cava and pancreas are within normal limits. There is n o upper abdominal ascites. The right kidney is normal in appearance, measuring 10.4 cm. IMPRESSION: Hepatomegaly with diffusely increased hepatic echogenicity and heterogeneous echotexture, consistent with underlying fatty infiltration and/or hepatocellular disease. This limits sonographic sensitivit y. Gallstones in an otherwise normal appearing gallbladder. Electronically signed by: Jerrod Peterson MD (01/08/2022 9:31 AM) [id number]
== END ==
LOC: US 07:37
PROVIDERS: ATTEND Family Medicine
DX: R16.0 Hepatomegaly, not elsewhere classified (principal); K80.20 Calculus of gallbladder without cholecystitis without obstruction; R74.8 Abnormal levels of other serum enzymes; D58.2 Other hemoglobinopathies
CPT/HCPCS: 76705